=== PATIENT | male | born 1975 | race American Indian/Alaskan Native ===

== ENCOUNTER 2018-07-30 12:27 | Emergency (ER) | payer SELFPAY ==
[2018-07-30 13:06] VITALS: BP 155/106
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
== END 2018-07-30 14:50 | disposition home or self-care (01) ==
LOC: ED 12:27
DX: T23.032A Burn of unspecified degree of multiple left fingers (nail), not including thumb, initial encounter (principal); F17.200 Nicotine dependence, unspecified, uncomplicated; X08.8XXA Exposure to other specified smoke, fire and flames, initial encounter; Y93.89 Activity, other specified; Y92.89 Other specified places as the place of occurrence of the external cause; Y99.8 Other external cause status
CPT/HCPCS: 99282